=== PATIENT | female | born 1970 | race Hispanic/Latino ===

== ENCOUNTER 2018-03-20 11:53 | Emergency (ER) | payer BC ==
[2018-03-20] MEDS ORDERED: ACETAMINOPHEN EXTRA STRENGTH 500 MG TABLET ONE (12:29)
[2018-03-20] MEDS ORDERED: IPRATROPIUM/ALBUTEROL SULFATE 3 ML SOLUTION IH ONE (12:33)
[2018-03-20 12:38] LABS: APPEARANCE,URINE Clear (CLEAR); BILIRUBIN,URINE Negative (NEGATIVE); COLOR,URINE Yellow (YELLOW); GLUCOSE, URINE (UA) Negative (NEGATIVE); KETONES,URINE Trace mg/dL (NEGATIVE); LEUKOCYTE ESTERASE ,URINE Negative (NEGATIVE); NITRATE,URINE Negative (NEGATIVE); OCCULT BLOOD,URINE Trace (NEGATIVE); PROTEIN,URINE Trace (NEGATIVE)
[2018-03-20 12:43] LABS: HCG,QUAL RESULT NEGATIVE (NEGATIVE)
[2018-03-20 12:45] LABS: BACTERIA,URINE Rare /HPF (None Seen); RBC,URINE 0-1 /HPF (0-1); SQUAMOUS EPITHELIAL CELL,UR Rare /HPF (0-2); WBC,URINE 0-1 /HPF (0-1)
== END 2018-03-20 13:28 | disposition home or self-care (01) ==
LOC: EDH 11:53
DX: J06.9 Acute upper respiratory infection, unspecified (principal); E78.00 Pure hypercholesterolemia, unspecified
CPT/HCPCS: 71046; 81001; 81025; 87804; 87880; 94640

== ENCOUNTER 2019-02-12 18:09 | Emergency (ER) | payer BC, OTHER ==
[2019-02-12] MEDS ORDERED: IBUPROFEN 600 MG TABLET ONE (18:33)
[2019-02-12] MEDS ORDERED: TETANUS/DIPHTHERIA TOXOID [ADULT] 0.5 ML VIAL IM ONE (18:34)
== END 2019-02-12 19:43 | disposition home or self-care (01) ==
LOC: EDH 18:09
DX: S80.02XA Contusion of left knee, initial encounter (principal); E78.00 Pure hypercholesterolemia, unspecified; W01.0XXA Fall on same level from slipping, tripping and stumbling without subsequent striking against object, initial encounter; Y93.01 Activity, walking, marching and hiking; Y92.481 Parking lot as the place of occurrence of the external cause; Y99.8 Other external cause status
CPT/HCPCS: 73562; 90471; 90714

== ENCOUNTER 2021-03-02 09:00 | Inpatient (IN) | payer OTHER ==
[~2021-03-02] VITALS: Ht 157.5 cm; Wt 91.7 kg
[2021-03-02 15:57] LABS: BASOPHILS % (AUTO) 0.4 % (0.0-5.0); EOSINOPHILS % (AUTO) 0.7 % (0.0-8.0); HEMATOCRIT 34.2 % (36-48); LYMPHOCYTES % (AUTO) 27.7 % (21.0-51.0); MEAN CORPUSCULAR HEMOGLOBIN 21.8 pg (27.0-33.0); MEAN CORPUSCULAR HGB CONC 29.2 g/dL (32.0-36.0); MEAN CORPUSCULAR VOLUME 74.7 fL (79-99); MONOCYTES % (AUTO) 11.2 % (3.0-13.0); NEUTROPHILS % (AUTO) 59.8 % (40.0-77.0); PLATELET COUNT (AUTO) 396 K/uL (130-400); RED BLOOD CELL COUNT(AUTO) 4.58 MIL/uL (4.00-5.50); RED CELL DISTRIBUTION WIDTH 20.5 % (11.0-15.5); WHITE BLOOD COUNT (AUTO) 8.3 K/uL (4.8-10.8)
[2021-03-02 16:17] LABS: CREATININE 0.7 mg/dL (0.5-1.5); POTASSIUM 4.3 mmol/L (3.5-5.1)
[2021-03-02 17:01] VITALS: BP 137/62
[2021-03-02] MEDS ORDERED: ATOR10 PO (17:24)
[2021-03-02] MEDS ORDERED: METF-444 PO (17:24)
[2021-03-02] MEDS ORDERED: SEMA1PEN3 SQ (17:24)
[2021-03-02] MEDS ORDERED: FAMO-136 PO (17:24)
[2021-03-02] MEDS ORDERED: FERS325 PO (17:24)
[2021-03-03] VITALS (24 sets, daily range): BP systolic 108–135; BP diastolic 50–81
[2021-03-03] MEDS ORDERED: 0.9%NACL 1000ML 1,000 ML IV ONE (06:13)
[2021-03-03] MEDS ORDERED: CEFAZOLIN SODIUM 1 GM VIAL ONE (06:14)
[2021-03-03] MEDS: CEFAZOLIN SODIUM 1 GM VIAL ONE ×2 (06:38→08:25)
[2021-03-03] MEDS ORDERED: LIDOCAINE PF 100MG/5ML (2%) SYRINGE 5ML ONE (07:30)
[2021-03-03] MEDS ORDERED: ROCURONIUM 10MG/1ML SYR 10 MG/ML ML ONE (07:30)
[2021-03-03] MEDS ORDERED: PROPOFOL 10 MG/ML 20ML VIAL IV ONE (07:30)
[2021-03-03] MEDS ORDERED: SUCCINYLCHOLINE CHLORIDE 20 MG/ML 10 ML VIAL ONE (07:30)
[2021-03-03] MEDS ORDERED: FENTANYL CITRATE PF 50 MCG/1 ML 2ML VIAL ONE ×2 (07:31→10:30)
[2021-03-03] MEDS ORDERED: MIDAZOLAM HCL 1 MG/ML 2ML VIAL ONE (08:12)
[2021-03-03] MEDS ORDERED: GLYCOPYRROLATE 1 MG/5 ML SYRINGE ONE (10:11)
[2021-03-03] MEDS ORDERED: NEOSTIGMINE 5MG/5ML SYR IV ONE (10:11)
[2021-03-03] MEDS ORDERED: MEPERIDINE-PF 25 MG/ML SYG ONE ×3 (10:12→11:05)
[2021-03-03] MEDS ORDERED: ONDANSETRON 4MG INJ ONE (10:27)
[2021-03-03] MEDS ORDERED: ONDANSETRON 4MG INJ IVP PRN ×2 (12:00→14:00)
[2021-03-03] MEDS ORDERED: PROMETHAZINE HCL 25 MG/ML 1ML AMPULE IM PRN ×2 (14:00)
[2021-03-03] MEDS ORDERED: BISACODYL 10 MG SUPP.RECT RC PRN (14:00)
[2021-03-03] MEDS ORDERED: MEPERIDINE-PF 75 MG/ML SYG IM PRN (14:00)
[2021-03-03] MEDS ORDERED: IBUPROFEN 600 MG TABLET PO PRN (14:00)
[2021-03-03] MEDS ORDERED: MEPERIDINE-PF 75 MG/ML SYG ONE (14:09)
[2021-03-03] MEDS: INSULIN R PO SS1 SQ SCH ×2 (16:30→21:00)
[2021-03-03] MEDS: INSULIN HUMULIN R 100 UNIT/ML 3ML SQ SCH ×2 (16:30→21:00)
[2021-03-03] MEDS: 0.9%NACL 1000ML 1,000 ML IV SCH (19:56)
[2021-03-04 03:00] VITALS: BP 101/48
[2021-03-04] MEDS: 0.9%NACL 1000ML 1,000 ML IV SCH ×4 (04:00→20:29)
[2021-03-04] MEDS: ACETAMINOPHEN WITH CODEINE 1 TAB TAB PO PRN ×2 (04:22→21:04)
[2021-03-04] MEDS ORDERED: HYDROCODONE/ACETAMINOPHEN 5/325 MG TAB PO PRN (06:00)
[2021-03-04 06:50] LABS: HEMATOCRIT 28.9 % (36-48); MEAN CORPUSCULAR HEMOGLOBIN 21.5 pg (27.0-33.0); MEAN CORPUSCULAR HGB CONC 29.4 g/dL (32.0-36.0); MEAN CORPUSCULAR VOLUME 73.2 fL (79-99); RED BLOOD CELL COUNT(AUTO) 3.95 MIL/uL (4.00-5.50); WHITE BLOOD COUNT (AUTO) 12.4 K/uL (4.8-10.8)
[2021-03-04] MEDS: INSULIN HUMULIN R 100 UNIT/ML 3ML SQ SCH ×5 (07:07→20:29)
[2021-03-04] MEDS: INSULIN R PO SS1 SQ SCH ×4 (07:07→21:00)
[2021-03-04 07:10] VITALS: BP 122/73
[2021-03-04] MEDS: IBUPROFEN 800 MG TAB PO PRN (08:37)
[2021-03-04] MEDS: DOCUSATE SODIUM 100 MG CAP PO PRN (08:37)
[2021-03-04] MEDS: SIMETHICONE 80 MG TAB.CHEW PO PRN ×2 (08:37→14:30)
[2021-03-04 11:07] VITALS: BP 112/66
[2021-03-04] MEDS: FERROUS SULFATE 325 MG TABLET.DR PO SCH ×2 (14:30→20:59)
[2021-03-04 16:32] VITALS: BP 120/53
[2021-03-04 19:39] VITALS: BP 105/74
[2021-03-04 23:16] VITALS: BP 116/68
[2021-03-05 03:11] VITALS: BP 125/78
[2021-03-05] MEDS: IBUPROFEN 800 MG TAB PO PRN (03:31)
[2021-03-05] MEDS: INSULIN HUMULIN R 100 UNIT/ML 3ML SQ SCH (04:42)
[2021-03-05] MEDS: INSULIN R PO SS1 SQ SCH (07:08)
[2021-03-05 07:24] VITALS: BP 126/73
[2021-03-05] MEDS: FERROUS SULFATE 325 MG TABLET.DR PO SCH (09:09)
[2021-03-05] MEDS: DOCUSATE SODIUM 100 MG CAP PO PRN (09:09)
[2021-03-05] MEDS: SIMETHICONE 80 MG TAB.CHEW PO PRN (09:09)
[2021-03-05] MEDS: ACETAMINOPHEN WITH CODEINE 1 TAB TAB PO PRN (09:13)
[2021-03-05 11:16] VITALS: BP 122/74
== END 2021-03-05 12:45 | disposition home or self-care (01) | DRG 743 ==
LOC: DAHIP 03-03 05:30 → WSH 03-03 11:40
PROVIDERS: ADMIT Obstetrics & Gynecology; ATTEND Obstetrics & Gynecology
PROC: 0UT20ZZ Resection of Bilateral Ovaries, Open Approach (ICD-10-PCS; 2021-03-03)
PROC: 0UT70ZZ Resection of Bilateral Fallopian Tubes, Open Approach (ICD-10-PCS; 2021-03-03)
PROC: 0UT90ZZ Resection of Uterus, Open Approach (ICD-10-PCS; principal; 2021-03-03 09:50)
DX: D25.9 Leiomyoma of uterus, unspecified (principal); D50.9 Iron deficiency anemia, unspecified; E78.5 Hyperlipidemia, unspecified; N92.1 Excessive and frequent menstruation with irregular cycle; Z20.822 Contact with and (suspected) exposure to COVID-19; R35.0 Frequency of micturition; N32.9 Bladder disorder, unspecified; N85.2 Hypertrophy of uterus; E11.9 Type 2 diabetes mellitus without complications; K21.9 Gastro-esophageal reflux disease without esophagitis; J45.909 Unspecified asthma, uncomplicated; E66.01 Morbid (severe) obesity due to excess calories; N89.5 Stricture and atresia of vagina; Z68.37 Body mass index [BMI] 37.0-37.9, adult; Z87.440 Personal history of urinary (tract) infections; Z88.8 Allergy status to other drugs, medicaments and biological substances; Z83.3 Family history of diabetes mellitus; Z82.49 Family history of ischemic heart disease and other diseases of the circulatory system
CPT/HCPCS: 36415; 80048; 82948; 84703; 85025; 85027; 86850; 86900; 86901; 87635; A4344; C1769; G0378; J0330; J0690; J2001; J2175; J2250; J2405; J2550; J2704; J2710; J3010; J3490; J7030